=== PATIENT | female | born 1995 | race African-American/Black ===

== ENCOUNTER 2017-07-11 15:45 | Emergency (ER) | payer OTHER, BC ==
[2017-07-11 16:08] VITALS: BP 116/65; PULSE 90; TEMP 98.5; BMI 22.8
--- NOTE | 2017-07-11 17:15 | PDOC ---
History of Present Illness - General History Source: Patient Exam Limitations: No Limitations - History of Present Illness Initial Comments: 07/11/17 17:25 Pt is a 21 yo F (12 weeks , LMP April 18) with no PMHx who presents to the ED with complaints of foreign body stuck in throat. Patient reports taking her vitamins yesterday and since then states the pill is still stuck in my throat. Patient reports dysphagia however denies difficulty breathing. Patient denies any fever/chills and presents to the ED for further evaluation. 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 <Chayito Cooley - Last Filed: 07/11/17 17:25> - General History Source: Patient Exam Limitations: No Limitations - History of Present Illness Pain Location: reports: neck <Migdalia Tovar - Last Filed: 07/11/17 20:23> - General Chief Complaint: Pain Stated Complaint: FOREIGN SUBSTANCE IN THROAT Time Seen by Provider: 07/11/17 17:14 Past History <Chayito Cooley - Last Filed: 07/11/17 17:25> - Past Medical History COPD: No - Suicide/Smoking/Psychosocial Hx Smoking History: Never smoked <Migdalia Tovar - Last Filed: 07/11/17 20:23> - Past Medical History Allergies/Adverse Reactions: Allergies Allergy/AdvReac Type Severity Reaction Status Date / Time No Known Allergies Allergy Verified 07/11/17 16:04 Home Medications: Ambulatory Orders NK [No Known Home Medication] 07/11/17 Vit/Iron Fumarate/FA [ Tablet] 1 each PO ASDIR 07/11/17 Review of Systems - Review of Systems Able to Perform ROS?: Yes Comments:: 07/11/17 17:28 CONSTITUTIONAL: Absent: fever, no chills, no fatigue EYES: Absent: visual changes ENT: +dysphagia Absent: ear pain, no sore throat CARDIOVASCULAR: Absent: chest pain, no palpitations RESPIRATORY: Absent: cough, no SOB GI: Absent: abdominal pain, no nausea, no vomiting, no constipation, no diarrhea GENITOURINARY: Absent: dysuria, no frequency, no hematuria MUSCULOSKELETAL: Absent: back pain, no arthralgia, no myalgia SKIN: Absent: rash NEURO: Absent: headache <Chayito Cooley - Last Filed: 07/11/17 17:25> *Physical Exam - Vital Signs Last Vital Signs Temp Pulse Resp BP Pulse Ox 98.5 F 90 18 116/65 100 07/11/17 16:04 07/11/17 16:04 07/11/17 16:04 07/11/17 16:04 07/11/17 16:04 - Physical Exam Comments: 07/11/17 17:28 GENERAL: Well-appearing, well-nourished. No apparent distress. HEENT: Normocephalic, atraumatic. PERRL, EOM intact. No foreign body visualized. Patient able to swallow secretions. +Airway patent. CARDIOVASCULAR: Normal S1, S2. Regular rate and rhythm. PULMONARY: Clear to auscultation bilaterally. ABDOMEN: Soft, non-distended, non-tender. EXTREMITIES: Normal ROM in all four extremities. No gross deformities. SKIN: Warm, dry. No rash NEUROLOGICAL: No focal neurological deficits. <Chayito Cooley - Last Filed: 07/11/17 17:25> - Vital Signs Last Vital Signs Temp Pulse Resp BP Pulse Ox 98.5 F 90 18 116/65 100 07/11/17 16:04 07/11/17 16:04 07/11/17 16:04 07/11/17 16:04 07/11/17 16:04 - Physical Exam General Appearance: Yes: Nourished, Appropriately Dressed. No: Apparent Distress HEENT: positive: Other (no swelling, redness, abrasion or laceration noted in posterior pharynx, no foreign body noted no evidence of bruising or intrusion. Airway is patent) <Migdalia Tovar - Last Filed: 07/11/17 20:23> Medical Decision Making - Medical Decision Making 07/11/17 17:28 Migdalia Tovar : The scribe's documentation has been prepared under my direction and personally reviewed by me in its entirety. I confirm that the note above accurately reflects all work, treatment, procedures, and medical decision making performed by me. <Chayito Cooley - Last Filed: 07/11/17 17:25> - Medical Decision Making 07/11/17 20:05 Probable foreign body sensation. with no obvious retained foreign body. We'll refer to ENT as needed. Understands will not xray due to pregnacy . <Migdalia Tovar - Last Filed: 07/11/17 20:23> *DC/Admit/Observation/Transfer - Attestations Scribe Attestion: 07/11/17 17:29 Documentation prepared by Chayito Cooley, acting as medical chief technician for Migdalia Guy PANTOGRAPH WATCHER <Chayito Cooley - Last Filed: 07/11/17 17:25> - Discharge Dispostion Admit: No <Migdalia Tovar - Last Filed: 07/11/17 20:23> Diagnosis at time of Disposition: Pain in throat - Discharge Dispostion Disposition: HOME Condition at time of disposition: Stable - Referrals Referrals: STAFF,NOT ON [Primary Care Provider] - Nnamdi Morales MD [Staff Physician] - - Patient Instructions Printed Discharge Instructions: DI for Foreign Body, Swallowed-Adult Additional Instructions: Rest, drink lots of fluids: Teas, water, soups Eat cold things: Ice cream, ice pops, ice chips Saltwater gargles Steamy showers/seem to face break up mucus Tylenol for fever and pain Followup with private physician in one to 2 days as needed if not improving May seek attention at ear nose and throat doctor for possible evaluation and scoping if symptoms persist Return to emergency department for worsened symptoms, fevers, dehydration
== END 2017-07-11 17:29 | disposition home or self-care (01) ==
LOC: JERFT 15:45 → JER 15:45 → JERFT 17:29
DX: O99.89 Other specified diseases and conditions complicating pregnancy, childbirth and the puerperium (principal); R09.89 Other specified symptoms and signs involving the circulatory and respiratory systems; R13.13 Dysphagia, pharyngeal phase; Z3A.12 12 weeks gestation of pregnancy
CPT/HCPCS: 99281-25

== ENCOUNTER 2017-10-15 10:43 | Emergency (ER) | payer BC, OTHER ==
[2017-10-15 10:55] VITALS: BMI 24.2
[2017-10-15 12:12] VITALS: BP 124/72; PULSE 83; TEMP 98.7
[2017-10-15] MEDS ORDERED: LACTATED RINGERS SOLUTION 1,000 ML IV SCH (15:30)
[2017-10-15] MEDS ORDERED: LACTATED RINGERS SOLUTION 500 ML IV ONE (15:30)
== END 2017-10-15 15:10 | disposition home or self-care (01) ==
LOC: JER 10:43
DX: O26.892 Other specified pregnancy related conditions, second trimester (principal); R10.30 Lower abdominal pain, unspecified; Z3A.25 25 weeks gestation of pregnancy
CPT/HCPCS: 76801-TC; 76817-TC; 99281-25

== ENCOUNTER 2021-04-28 12:14 | Emergency (ER) | payer OTHER ==
[2021-04-28 12:31] VITALS: BP 107/67; PULSE 83; TEMP 98; BMI 22.1
[2021-04-28] MEDS ORDERED: IBUPROFEN 600 MG TABLET (FP) PO ONE ×2 (13:12→13:18)
== END 2021-04-28 14:15 | disposition home or self-care (01) ==
LOC: JER 12:14
DX: M79.645 Pain in left finger(s) (principal)
CPT/HCPCS: 73130-TC-LT-FY; 99283-25